=== PATIENT | female | born 1965 | race African-American/Black ===

== ENCOUNTER 2018-01-06 09:11 | Emergency (ER) | payer OTHER ==
[~2018-01-06] VITALS: Ht 154.9 cm; Wt 80.7 kg
--- NOTE | ~2018-01-06 | EKG ---
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 01/09/18 0712 0929 8 Lester Vega MD, FACC /EPI
[~2018-01-06 09:11] MED LIST: AMLODIPINE BESY10 MG PO; NAPROSYN500 MG PO
[2018-01-06 10:55] LABS: ABSOLUTE NEUTROPHILS 5.7 thou/uL (1.4-8.2); BASOPHILS 0.4 % (0.0-2.0); EOSINOPHILS 3.9 % (0.0-3.0); HEMATOCRIT 42.2 % (37.0-47.0); HEMOGLOBIN 14.1 gm/dL (12.0-15.0); MCH 28.3 pg (26.0-34.0); MCHC 33.4 g/dL (28.0-37.0); MCV 84.9 fL (80.0-100.0); MONOCYTES 6.8 % (1.0-8.0); PLATELET COUNT 376 thou/uL (150-400); POLYS 65.9 % (36.0-66.0); RBC 4.97 mil/uL (4.20-5.00); RDW 14.2 % (10.5-14.5); WBC 8.7 thou/uL (4.0-11.0)
[2018-01-06 11:02] LABS: ANION GAP 10 mmol/L (7-16); BUN 6 mg/dL (7-18); CALCIUM 8.9 mg/dL (8.5-10.1); CHLORIDE 104 mmol/L (98-107); CO2 26 mmol/L (21-32); CREATININE 0.6 mg/dL (0.6-1.0); GLUCOSE 89 mg/dL (74-106); POTASSIUM 3.8 mmol/L (3.5-5.1); SODIUM 140 mmol/L (136-145)
[2018-01-06 11:11] LABS: TROPONIN-I < 0.04 ng/mL (<0.06)
[2018-01-06] MEDS ORDERED: NORCO 5-325 TA1 EACH PO (13:42)
== END 2018-01-06 14:02 | disposition home or self-care (01) ==
LOC: ER 09:11
PROVIDERS: Physician Assistant
DX: R07.9 Chest pain, unspecified (principal); I10 Essential (primary) hypertension; Z90.710 Acquired absence of both cervix and uterus; Z88.1 Allergy status to other antibiotic agents

== ENCOUNTER 2019-06-25 13:35 | Emergency (ER) | payer OTHER ==
[~2019-06-25] VITALS: Ht 167.6 cm; Wt 74.8 kg
[~2019-06-25 13:35] MED LIST changes: +NORCO 5-325 TA1 EACH PO
[2019-06-25 14:02] LABS: ABSOLUTE NEUTROPHILS 7.9 thou/uL (1.4-8.2); BASOPHILS 0.3 % (0.0-2.0); EOSINOPHILS 0.7 % (0.0-3.0); HEMATOCRIT 42.4 % (37.0-47.0); HEMOGLOBIN 14.3 gm/dL (12.0-15.0); LYMPHOCYTES 12.4 % (24.0-44.0); MCH 29.2 pg (26.0-34.0); MCHC 33.6 g/dL (28.0-37.0); MCV 86.9 fL (80.0-100.0); MONOCYTES 6.4 % (1.0-8.0); PLATELET COUNT 354 thou/uL (150-400); POLYS 80.2 % (36.0-66.0); RBC 4.88 mil/uL (4.20-5.00); RDW 13.7 % (10.5-14.5); WBC 9.8 thou/uL (4.0-11.0)
[2019-06-25 14:10] LABS: ANION GAP 12 mmol/L (7-16); BUN 8 mg/dL (7-18); CALCIUM 9.1 mg/dL (8.5-10.1); CHLORIDE 103 mmol/L (98-107); CO2 24 mmol/L (21-32); CREATININE 0.7 mg/dL (0.6-1.0); GLUCOSE 86 mg/dL (74-106); POTASSIUM 3.9 mmol/L (3.5-5.1); SODIUM 139 mmol/L (136-145)
[2019-06-25 14:18] LABS: TROPONIN-I <0.06 ng/mL (<0.06)
[2019-06-25 18:03] VITALS: BP 141/66
--- NOTE | 2019-06-26 08:39 | EKG ---
[place] [address] [address] [facility] [facility] [place] [address] ELECTROCARDIOGRAM REPORT Name: GENO FAJARDO Room #: [facility]#: [id number] ������������������ Admission: 06/25/19 ������������������ Attend Phys: Discharge: 06/25/19 ������������������ Date of : 65 Report #: [id number] ����������������������������������������������������������������� [id number] THIS REPORT FOR: //name// [facility] ED Test Date: 2019-06-25 Test Time: 13:40:00 Pat Name: GENO FAJARDO Department: Room: Gender: F Sports Physician: mirna : 1965 Requested By: Ning Syed Order Number: [id number] MD: Lester Vega Measurements Intervals [place] Rate: 68 P: 42 KS: 140 QRS: 26 QRSD: 88 T: 18 QT: 396 QTc: 422 Interpretive Statements Sinus rhythm Normal tracing Compared to ECG 01/06/2018 09:29:38 No significant changes Electronically Signed On 06-26-2019 8:38:54 CDT by Lester Vega [email or web address] ��������������������������������������������� <ELECTRONICALLY SIGNED> ���������������������������������������� By: Lester Vega MD, [facility] ��������������������������������������������� 06/26/19 0838 1340 1340 Lester Vega MD, FACC /EPI
== END 2019-06-25 18:20 | disposition home or self-care (01) ==
LOC: ER 13:35
PROVIDERS: Nurse Practitioner
DX: R07.89 Other chest pain (principal); I10 Essential (primary) hypertension; Z90.710 Acquired absence of both cervix and uterus; Z88.1 Allergy status to other antibiotic agents

== ENCOUNTER 2020-05-08 00:34 | Emergency (ER) | payer OTHER ==
[~2020-05-08] VITALS: Ht 154.9 cm; Wt 79.4 kg
[2020-05-08 01:11] LABS: ABSOLUTE NEUTROPHILS 5.3 thou/uL (1.4-8.2); BASOPHILS 0.8 % (0.0-2.0); HEMATOCRIT 41.3 % (37.0-47.0); HEMOGLOBIN 13.8 gm/dL (12.0-15.0); LYMPHOCYTES 29.5 % (24.0-44.0); MCH 29.7 pg (26.0-34.0); MCHC 33.5 g/dL (28.0-37.0); MCV 88.7 fL (80.0-100.0); MONOCYTES 7.9 % (1.0-8.0); PLATELET COUNT 360 thou/uL (150-400); POLYS 56.8 % (36.0-66.0); RBC 4.65 mil/uL (4.20-5.00); RDW 14.2 % (10.5-14.5); WBC 9.4 thou/uL (4.0-11.0)
[2020-05-08 01:18] LABS: ANION GAP 8 mmol/L (7-16); BUN 5 mg/dL (7-18); CALCIUM 8.2 mg/dL (8.5-10.1); CHLORIDE 103 mmol/L (98-107); CO2 26 mmol/L (21-32); CREATININE 0.7 mg/dL (0.6-1.0); GLUCOSE 95 mg/dL (74-106); SODIUM 137 mmol/L (136-145)
[2020-05-08 01:35] LABS: TROPONIN-I <0.06 ng/mL (<0.06)
[2020-05-08 02:12] VITALS: BP 143/65
--- NOTE | 2020-05-08 07:38 | EKG ---
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: : 1965 Requested By: Juan Carlos Redd Order Number: [id number] MD: Lester Vega Measurements Intervals [place] Rate: 68 P: 37 CO: 146 QRS: 27 QRSD: 90 T: -5 QT: 404 QTc: 430 Interpretive Statements Sinus rhythm Borderline T abnormalities, inferior leads Compared to ECG 06/25/2019 13:40:00 No significant change was found Electronically Signed On 05-08-2020 7:37:44 CDT by Lester Vega [email or web address] <ELECTRONICALLY SIGNED> By: Lester Vega MD, [facility] 05/08/20 0737 0043 0043 Lester Vega MD, [facility] /EPI
== END 2020-05-08 02:20 | disposition home or self-care (01) ==
LOC: ER 00:34
PROVIDERS: Emergency Medicine
DX: R07.89 Other chest pain (principal); I10 Essential (primary) hypertension; Z88.1 Allergy status to other antibiotic agents; Z79.899 Other long term (current) drug therapy; Z90.710 Acquired absence of both cervix and uterus

== ENCOUNTER 2021-09-10 20:01 | Emergency (ER) | payer BC, OTHER ==
[~2021-09-10] VITALS: Ht 154.9 cm; Wt 78.9 kg
[2021-09-10 21:09] LABS: ABSOLUTE NEUTROPHILS 5.6 thou/uL (1.4-8.2); BASOPHILS 0.6 % (0.0-2.0); EOSINOPHILS 3.8 % (0.0-3.0); HEMOGLOBIN 13.3 gm/dL (12.0-15.0); MCH 28.3 pg (26.0-34.0); MCHC 32.5 g/dL (28.0-37.0); MCV 86.9 fL (80.0-100.0); MONOCYTES 9.3 % (1.0-8.0); PLATELET COUNT 330 thou/uL (150-400); POLYS 64.3 % (36.0-66.0); RBC 4.72 mil/uL (4.20-5.00); RDW 14.6 % (10.5-14.5); WBC 8.6 thou/uL (4.0-11.0)
[2021-09-10 21:22] LABS: ANION GAP 8 mmol/L (7-16); BUN 7 mg/dL (7-18); CALCIUM 8.4 mg/dL (8.5-10.1); CHLORIDE 105 mmol/L (98-107); CO2 27 mmol/L (21-32); CREATININE 0.6 mg/dL (0.6-1.0); GLUCOSE 91 mg/dL (74-106); POTASSIUM 3.9 mmol/L (3.5-5.1); SODIUM 140 mmol/L (136-145)
[2021-09-10] MEDS ORDERED: NAPROSYN500 MG PO (21:41)
[2021-09-10] MEDS ORDERED: NORCO5 PO (21:41)
[2021-09-10 21:54] VITALS: BP 131/70
--- NOTE | 2021-09-14 07:26 | EKG ---
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 : 1965 Requested By: Osvaldo Houston Order Number: [id number] MD: Jose Gonzalez Measurements Intervals [place] Rate: 76 P: 18 MI: 149 QRS: 7 QRSD: 84 T: -8 QT: 384 QTc: 432 Interpretive Statements Sinus rhythm Low voltage, precordial leads Compared to ECG 05/08/2020 00:43:05 Low QRS voltage now present T-wave abnormality no longer present Electronically Signed On 09-14-2021 7:25:59 CDT by Jose Gonzalez [email or web address] <ELECTRONICALLY SIGNED> By: Jose Gonzalez MD, [facility] 09/14/21 0725 12 12 Jose Gonzalez MD, FACC /EPI
== END 2021-09-10 21:55 | disposition home or self-care (01) ==
LOC: ER 20:01
PROVIDERS: Emergency Medicine
DX: R51.9 Headache, unspecified (principal); I10 Essential (primary) hypertension; Z90.49 Acquired absence of other specified parts of digestive tract; Z90.710 Acquired absence of both cervix and uterus; Z79.891 Long term (current) use of opiate analgesic; Z79.899 Other long term (current) drug therapy; Z88.8 Allergy status to other drugs, medicaments and biological substances; Z88.1 Allergy status to other antibiotic agents

== ENCOUNTER 2021-09-23 16:08 | Emergency (ER) | payer BC, OTHER ==
[~2021-09-23] VITALS: Ht 154.9 cm; Wt 78.9 kg
[~2021-09-23 16:08] MED LIST changes: +NORCO5 PO
[2021-09-23] MEDS ORDERED: FLEXERIL PO (16:13)
[2021-09-23] MEDS ORDERED: PREDNISONE 10 M10 MG PO (16:13)
[2021-09-23 17:54] LABS: HEMATOCRIT 43.2 % (37.0-47.0); HEMOGLOBIN 14.1 gm/dL (12.0-15.0); MCH 28.2 pg (26.0-34.0); MCHC 32.6 g/dL (28.0-37.0); MCV 86.5 fL (80.0-100.0); RDW 14.5 % (10.5-14.5); WBC 8.7 thou/uL (4.0-11.0)
[2021-09-23 18:00] LABS: ANION GAP 10 mmol/L (7-16); BUN 7 mg/dL (7-18); CALCIUM 8.5 mg/dL (8.5-10.1); CHLORIDE 107 mmol/L (98-107); CO2 23 mmol/L (21-32); CREATININE 0.5 mg/dL (0.6-1.0); GLUCOSE 110 mg/dL (74-106); POTASSIUM 3.9 mmol/L (3.5-5.1); SODIUM 140 mmol/L (136-145)
[2021-09-23 18:10] LABS: ALBUMIN 3.8 g/dL (3.4-5.0); SGOT 21 U/L (15-37); SGPT 43 U/L (30-65); TOTAL BILIRUBIN 0.1 mg/dL (0.2-1.0); TOTAL PROTEIN 7.5 g/dL (6.4-8.2)
[2021-09-23 22:20] VITALS: BP 140/67
--- NOTE | 2021-09-24 15:45 | EKG ---
[place] [address] [facility] [place] [address] ELECTROCARDIOGRAM REPORT Name: GENO FAJARDO Room #: [place]#: [id number] Admission: 09/23/21 Attend Phys: Discharge: 09/23/21 Date of : 65 Report #: [id number] [facility] ED Test Date: 2021-09-23 Test Time: 16:35:10 Pat Name: GENO FAJARDO Department: Room: Gender: F Chief Commercial Officer: Kashif Rosario : 1965 Requested By: [place]a [place] Order Number: [id number] MD: Jose Gonzalez Measurements Intervals [place] Rate: 72 P: 22 NM: 144 QRS: 12 QRSD: 78 T: -3 QT: 383 QTc: 420 Interpretive Statements Sinus rhythm Probable left atrial enlargement Borderline T abnormalities, inferior leads Baseline wander in lead(s) II,III,aVF Compared to ECG 09/10/2021 20:13:35 T-wave abnormality now present Electronically Signed On 09-24-2021 15:45:37 CDT by Jose Gonzalez [email or web address] <ELECTRONICALLY SIGNED> By: Jose Gonzalez MD, ROBERT 09/24/21 1545 1635 1635 Jose Gonzalez MD, [facility] /EPI
== END 2021-09-23 22:24 | disposition home or self-care (01) ==
LOC: ER 16:08
PROVIDERS: Nurse Practitioner Family
DX: R51.9 Headache, unspecified (principal); I10 Essential (primary) hypertension; Z90.49 Acquired absence of other specified parts of digestive tract; Z90.710 Acquired absence of both cervix and uterus; Z79.891 Long term (current) use of opiate analgesic; Z79.1 Long term (current) use of non-steroidal anti-inflammatories (NSAID); Z79.899 Other long term (current) drug therapy; Z88.1 Allergy status to other antibiotic agents; Z88.8 Allergy status to other drugs, medicaments and biological substances